=== PATIENT | female | born 1970 | race Caucasian/White ===

== ENCOUNTER 2024-11-15 08:56 | Emergency (ER) | payer MEDICAID ==
[2024-11-15] MEDS: diphenhydrAMINE 50 MG/ML SDV IM ONE (09:36)
[2024-11-15] MEDS: Loratadine 10 MG Tab PO ONE (09:36)
[2024-11-15] MEDS: Dexamethasone 4 MG/ML SDV IM ONE (09:37)
[2024-11-15] MEDS: Montelukast 10 MG Tab PO ONE (10:10)
[2024-11-15] MEDS: Famotidine 20 MG Tab PO ONE (10:10)
[2024-11-15] MEDS: hydrOXYzine HCl 25 MG Tab PO ONE (10:12)
== END 2024-11-15 11:49 | disposition home or self-care (01) ==
LOC: JP.ED 08:56
DX: L50.9 Urticaria, unspecified (principal); I10 Essential (primary) hypertension; E66.9 Obesity, unspecified; E03.9 Hypothyroidism, unspecified; Z88.0 Allergy status to penicillin; Z88.2 Allergy status to sulfonamides; Z88.8 Allergy status to other drugs, medicaments and biological substances; Z79.890 Hormone replacement therapy; Z79.899 Other long term (current) drug therapy; Z68.35 Body mass index [BMI] 35.0-35.9, adult
CPT/HCPCS: 96372; 99282; A9270-GY; J1100; J1200

== ENCOUNTER 2025-01-15 18:40 | Emergency (ER) | payer OTHER, MEDICAID ==
[2025-01-15 19:36] LABS: HEMATOCRIT 40.3 % (34.3-46.0); HEMOGLOBIN 13.4 g/dL (11.2-15.5); MEAN CORPUSCULAR HEMOGLOBIN 28.4 pg (31.6-35.5); MEAN CORPUSCULAR HGB CONC 33.3 g/dL (31.6-35.5); MEAN CORPUSCULAR VOLUME 85.4 fL (81.4-99.0); RED BLOOD CELL COUNT 4.72 M/uL (3.77-5.24); WHITE BLOOD CELL COUNT,WBC 10.8 K/uL (3.2-11.0)
[2025-01-15 19:52] LABS: ANION GAP 15.5 mmol/L (5.0-14.0); CALCIUM 9.6 mg/dL (8.5-10.1); CREATININE 0.7 mg/dL (0.6-1.0); EST CRCL DRUG DOSING (CG) 77.77 mL/min; POTASSIUM,K 3.5 mmol/L (3.6-5.2)
[2025-01-15] MEDS: Iopamidol 612 MG/ML 100 ML Bottle IV SCH (19:59)
[2025-01-15] MEDS: Sodium Chloride 0.9% 80 ML IV SCH (19:59)
[2025-01-15 20:18] LABS: APPEARANCE,URINE CLEAR (CLEAR); BILIRUBIN,URINE NEGATIVE (NEGATIVE); COLOR,URINE YELLOW (YELLOW); GLUCOSE,URINE NEGATIVE (NEGATIVE); KETONES,URINE NEGATIVE (NEGATIVE); LEUKOCYTE ESTERASE,URINE NEGATIVE (NEGATIVE); NITRITE,URINE NEGATIVE (NEGATIVE); OCCULT BLOOD,URINE NEGATIVE (NEGATIVE); PROTEIN,URINE NEGATIVE (NEGATIVE); UROBILINOGEN,URINE 0.2 EU/dL (0.2-1.0)
[2025-01-15 20:25] LABS: AMORPHOUS SEDIMENT,URINE NOT SEEN; BACTERIA,URINE FEW; EPITHELIAL CELLS,URINE FEW; MUCUS,URINE FEW; RBC,URINE NOT SEEN (0-5); WBC,URINE 0-5 (0-5)
== END 2025-01-15 21:22 | disposition home or self-care (01) ==
LOC: JP.ED 18:40
DX: S16.1XXA Strain of muscle, fascia and tendon at neck level, initial encounter (principal); M25.511 Pain in right shoulder; R07.81 Pleurodynia; I10 Essential (primary) hypertension; E03.9 Hypothyroidism, unspecified; E66.9 Obesity, unspecified; Z79.899 Other long term (current) drug therapy; Z88.1 Allergy status to other antibiotic agents; Z88.2 Allergy status to sulfonamides; Z88.0 Allergy status to penicillin; Z88.8 Allergy status to other drugs, medicaments and biological substances; Z68.35 Body mass index [BMI] 35.0-35.9, adult; V49.40XA Driver injured in collision with unspecified motor vehicles in traffic accident, initial encounter; Y92.410 Unspecified street and highway as the place of occurrence of the external cause
CPT/HCPCS: 36415; 71260; 72125; 74177; 76377; 80048; 81001; 85027; 99284; Q9967

== ENCOUNTER 2025-04-30 21:05 | Emergency (ER) | payer MEDICAID ==
[2025-04-30] MEDS ORDERED: Sodium Chloride 0.9% 10 ML Syringe FLUSH PRN (21:34)
[2025-04-30] MEDS ORDERED: Naloxone 0.4 MG/ML SDV IVPUSH PRN (21:35)
[2025-04-30 21:50] LABS: BASOPHILS ABSOLUTE AUTO 0.06 K/uL (0.00-0.10); BASOPHILS PERCENT AUTO 0.6 % (0.1-1.3); EOSINOPHILS ABSOLUTE AUTO 0.72 K/uL (0.00-0.40); EOSINOPHILS PERCENT AUTO 6.7 % (0.0-5.4); IMMATURE GRAN ABSOLUTE AUTO 0.08 K/uL (0.00-0.23); IMMATURE GRAN PERCENT AUTO 0.7 % (0.0-0.7); LYMPHOCYTES ABSOLUTE AUTO 1.62 K/uL (0.8-3.3); LYMPHOCYTES PERCENT AUTO 15.0 % (11.4-47.7); MONOCYTES ABSOLUTE AUTO 0.80 K/uL (0.20-0.90); MONOCYTES PERCENT AUTO 7.4 % (3.3-12.6); NEUTROPHILS ABSOLUTE AUTO 7.54 K/uL (1.0-7.6); NEUTROPHILS PERCENT AUTO 69.6 % (40.0-78.1); PLATELET COUNT,PLT 211 K/uL (130-375); RED BLOOD CELL COUNT 4.24 M/uL (3.77-5.24); WHITE BLOOD CELL COUNT,WBC 10.8 K/uL (3.2-11.0)
[2025-04-30 22:07] LABS: BLOOD UREA NITROGEN,BUN 12.0 mg/dL (7-18); CARBON DIOXIDE,CO2 33.0 mmol/L (21-32); CHLORIDE,CL 102.0 mmol/L (100-108); CREATININE 0.9 mg/dL (0.6-1.0); EST CRCL DRUG DOSING (CG) 60.49 mL/min; ESTIMATED GFR 77.0 mL/min (>60); GLUCOSE RANDOM 150.0 mg/dL (74-106); POTASSIUM,K 4.1 mmol/L (3.6-5.2); SODIUM,NA 139.0 mmol/L (140-148)
[2025-04-30] MEDS: Iopamidol 612 MG/ML 100 ML Bottle IV SCH (23:11)
[2025-04-30 23:12] LABS: APPEARANCE,URINE CLEAR (CLEAR); GLUCOSE,URINE NEGATIVE (NEGATIVE); OCCULT BLOOD,URINE SMALL (NEGATIVE)
[2025-04-30 23:35] LABS: SQUAMOUS EPITHELIAL CELLS,UR FEW /HPF; UROTHELIAL CELLS,URINE NOT SEEN /HPF
== END 2025-05-01 02:16 ==
LOC: JP.ED 21:05
DX: T81.328A Disruption or dehiscence of closure of other specified internal operation (surgical) wound, initial encounter (principal); I10 Essential (primary) hypertension; E03.9 Hypothyroidism, unspecified; Z90.710 Acquired absence of both cervix and uterus; Z88.8 Allergy status to other drugs, medicaments and biological substances; Z88.2 Allergy status to sulfonamides; Z88.1 Allergy status to other antibiotic agents; Z79.899 Other long term (current) drug therapy
CPT/HCPCS: 36415; 74177; 80048; 81001; 83605; 85025; 86140; 96374; 96376; 99285; Q9967; J1171